=== PATIENT | female | born 1980 | race Caucasian/White ===

== ENCOUNTER 2020-04-21 20:56 | Emergency (ER) | payer SELFPAY ==
[~2020-04-21] VITALS: Ht 152.4 cm; Wt 50.0 kg
[2020-04-21] MEDS ORDERED: VOLTAREN - GENE75 MG PO (22:30)
[2020-04-21 22:57] VITALS: BP 132/77
== END 2020-04-21 22:57 | disposition home or self-care (01) | DRG 563 ==
LOC: ED 20:56
DX: S82.62XA Displaced fracture of lateral malleolus of left fibula, initial encounter for closed fracture (principal); W17.2XXA Fall into hole, initial encounter; Y92.009 Unspecified place in unspecified non-institutional (private) residence as the place of occurrence of the external cause